=== PATIENT | female | born 1965 | race Caucasian/White ===

== ENCOUNTER 2017-11-25 18:52 | Emergency (ER) | payer SELFPAY ==
[2017-11-25] MEDS ORDERED: LIDOCAINE 5% (700 MG) TRANSDERMAL ADH..PATCH TP ONE (20:30)
[2017-11-25] MEDS ORDERED: HYDROCODONE/ACETAMINOPHEN 5-325 MG TABLET PO ONE (20:30)
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
[2017-11-25 21:22] LABS: APPEARANCE,URINE CLEAR; BILIRUBIN,URINE NEGATIVE (NEGATIVE); COLOR,URINE STRAW; GLUCOSE, URINE NEGATIVE (NEGATIVE); KETONES,URINE 25 mg/dL (NEGATIVE); LEUKOCYTE ESTERASE,URINE NEGATIVE (NEGATIVE); NITRITE,URINE NEGATIVE (NEGATIVE); PROTEIN,URINE NEGATIVE (NEGATIVE); UROBILINOGEN,URINE NEGATIVE mg/dL (<2.0)
[2017-11-25 21:24] LABS: URINE SPECIFIC GRAVITY 1.004
[2017-11-25] MEDS ORDERED: ONDANSETRON 4 MG TAB.RAPDIS PO ONE (21:41)
--- NOTE | 2017-11-25 22:11 | RADIOLOGY REPORT (SQ) ---
CT ABDOMEN WITHOUT IV CONTRAST HISTORY: Right flank pain. COMPARISON: None. TECHNIQUE: CT scan of the abdomen and pelvis. This exam was performed according to our departmental dose-optimization program, which includes automated exposure control, adjustment of the mA and/or kV according to patient size and/or use of iterative reconstruction technique. FINDINGS: Lung bases are clear. No pleural or pericardial effusions. Liver, gallbladder, spleen, pancreas, and adrenal glands are unremarkable. No urinary tract calculus or obstructive uropathy. Status post hysterectomy. No bowel obstruction. Appendix is not well visualized; however there are no inflammatory changes in the right lower quadrant. Mild intramural fatty infiltration of the colon, suggesting chronic colitis. No free air or free fluid. Abdominal aorta is normal caliber. No acute osseous findings. IMPRESSION: No urinary tract calculus or obstructive uropathy. Mild wall thickening with fatty infiltration of ascending colon suggesting chronic colitis.
[2017-11-25] MEDS ORDERED: CIPROFLOXACIN HCL 500 MG TABLET PO ONE (22:55)
[2017-11-25] MEDS ORDERED: METRONIDAZOLE 500 MG TABLET PO ONE (22:56)
[2017-11-25 23:18] VITALS: BP 131/90
== END 2017-11-25 23:19 | disposition home or self-care (01) ==
LOC: ER 18:52
DX: S09.90XA Unspecified injury of head, initial encounter (principal); M54.9 Dorsalgia, unspecified; Y04.8XXA Assault by other bodily force, initial encounter; Y92.59 Other trade areas as the place of occurrence of the external cause; K52.9 Noninfective gastroenteritis and colitis, unspecified; R10.9 Unspecified abdominal pain; R42 Dizziness and giddiness; F17.200 Nicotine dependence, unspecified, uncomplicated
CPT/HCPCS: 99284; 81001; 76380; S0119